=== PATIENT | male | born 1975 | race Caucasian/White ===

== ENCOUNTER 2023-09-23 09:43 | Emergency (ER) | payer SELFPAY ==
[2023-09-23 09:45] VITALS: BP 126/78
--- NOTE | 2023-09-23 09:55 | ED.GENMED ---
History of Present Illness
<Terrie Servin PA-C - Last Filed: 09/23/23 12:11>
General
Chief Complaint: Skin Surface Trauma
Source: patient
Exam Limitations: none
Time Seen by Provider: 09/23/23 09:54
Nursing documentation reviewed up to this point in time: agreed with
Travel History
Have you had any contact with someone who has COVID-19?: No
Do you have any symptoms of coronavirus? Fever > 100 degrees, chills, cough, shortness of breath, sore throat, loss of taste or smell, muscle aches, or headache?: No
History of Present Illness
History of Present Illness:
This is a 48 y/o male with no pertinent past medical history who is presenting to the emergency department today with concerns of a laceration to his right posterior thigh. 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
he was taking tile down. Patient states that he was cut through his pants. Patient states that he is his plan for program blood and so he decided to report to the emergency department. Patient denies any falls, patient denies any injuries,
patient denies head trauma, any neck pain. Patient patient denies any trouble walking. Patient takes no blood thinners, has no chronic medical conditions. Patient states his last tetanus was 7 years ago, we will update today considering tetanus
prone wound.
Review of Systems
<Terrie Servin PA-C - Last Filed: 09/23/23 12:11>
Review of Systems
All Other Systems: ROS reviewed and negative except as documented in HPI and ROS
Phy Exam
<Terrie Servin PA-C - Last Filed: 09/23/23 12:11>
Physical Exam
Physical Exam:
General: Patient is well appearing and in no acute distress; non-toxic
Skin: Warm and dry, 2 cm laceration to the right posterior thigh, actively bleeding.
Head: Normocephalic, atraumatic
Eyes: Sclera non-icteric. EOMs intact. PERRLA.
Cardiac: Regular rate
Peripheral Vascular: No lower extremity swelling or edema. Brisk capillary refill.
Pulm: Normal respiratory effort
Musculoskeletal: No bony tenderness to palpation in the b/l lower extremities.
Neuro: CN II-XII intact, no focal neurologic deficits.
Psychiatric: Appropriate mood and affect.
Course
<Terrie Servin PA-C - Last Filed: 09/23/23 12:11>
Orders/Labs/Results
Orders:
Orders
09/23/23 10:33
Tetanus/Diphth/Acelpertussis [Adacel] 0.5 ml IM .ONCE ONE
Vital Signs
Initial and Last Documented VS:
Initial Vital Signs
Temp Pulse Resp BP Pulse Ox
98.7 F 81 16 126/78 99
09/23/23 09:45 09/23/23 09:45 09/23/23 09:45 09/23/23 09:45 09/23/23 09:45
Last Documented Vital Signs
Temp Pulse Resp BP Pulse Ox
98.7 F 81 16 126/78 99
09/23/23 09:45 09/23/23 09:45 09/23/23 09:45 09/23/23 09:45 09/23/23 09:45
<Edgar Goodwin DO - Last Filed: 09/23/23 11:05>
Orders/Labs/Results
Orders:
Orders
09/23/23 10:33
Tetanus/Diphth/Acelpertussis [Adacel] 0.5 ml IM .ONCE ONE
Vital Signs
Initial and Last Documented VS:
Initial Vital Signs
Temp Pulse Resp BP Pulse Ox
98.7 F 81 16 126/78 99
09/23/23 09:45 09/23/23 09:45 09/23/23 09:45 09/23/23 09:45 09/23/23 09:45
Last Documented Vital Signs
Temp Pulse Resp BP Pulse Ox
98.7 F 81 16 126/78 99
09/23/23 09:45 09/23/23 09:45 09/23/23 09:45 09/23/23 09:45 09/23/23 09:45
Procedures
<Terrie Servin PA-C - Last Filed: 09/23/23 12:11>
Laceration Closure
Right Posterior Thigh:
Status of Wound: clean
Size of Wound in cm: 2
Description of Wound Edges: sharp
Preparation: cleaned with saline and cleaned with Betadine
Anesthesia: 1% Lidocaine with epi
Revision/Debridement: routine- no revision
Wound exploration: explored to base- no FB
Type of Closure: single layer closure
Skin Closure Material: 4-0 prolene
Number of sutures: 2
<PATI Ruiz Last Filed: 09/23/23 12:11>
MDM/Problems Addressed
Differential Diagnosis Includes:
laceration closure--considering wound depth and persistent bleeding, sutures indicated
MDM/Problems Addressed:
laceration
Chronic conditions affecting care:
n/a
Acute Exacerbation and/or Progression of Chronic Illness:
n/a
<PATI Ruiz Last Filed: 09/23/23 12:11>
*Pulse Oximetry
Patient hypoxic: no
*Critical Care Note
Total Time (30-74mins, 75-104mins- exclusive of procedures): Not Applicable
Data Reviewed
Review of Other/Old Records Reveals: Records (No previous ER visits in [facility] to review) and Discharge Summary (No discharge summary to review )
Source: patient and records
<PATI Ruiz Last Filed: 09/23/23 12:11>
Patient Management
Escalation/DeEscalation of care consider admission/obs:
48-year-old male presenting today with a laceration following cutting his thigh with tile. It is actively bleeding, patient denies any other injuries. Patient does not take any blood thinners. Wound closed with sutures. Patient tolerated
procedure well. We discussed wound care precautions and return precautions. Patient has tetanus updated today. Patient stable for discharge.
ED Attending Note
<Terrie Servin PA-C - Last Filed: 09/23/23 12:11>
-
Portions of this chart may have been created with voice recognition software.� Occasional wrong word or��sound alike� substitutions may have occurred due to the inherent limitations of voice recognition software.
<Edgar Goodwin DO - Last Filed: 09/23/23 11:05>
ED Attending Note
Patient seen and examined by attending physician: Yes
I performed a history and physical exam of patient and discussed management with resident, I reviewed resident's note and agree with documented findings and plan of care.: Yes
ED Attending Note:
I have reviewed and agree with history and treatment pland by Terrie Servin. My exam revealed 48 yo male with 2 cm laceration right posterior thigh. Sutured, hemostasis achieved. Tetanus given. Stable for discharge, follow-up with primary care
in 7 to 10 days for suture removal.
Discharge Plan
Departure
Patient Disposition: Home (Routine Discharge)
Date of Disposition: 09/23/23
Time of Disposition: 10:56
Patient with high blood pressure during this ER visit?: Yes
Condition: Good
Discharge Problem:
Laceration of thigh, right
Instructions: Wound Care (DC), Laceration Repair With Stitches (DC)
Referrals:
Sandrine Kirkpatrick NP [Family Provider] -
Activity Restrictions/Additional Instructions:
Please keep the wound dry for 24 hours. After 24 hours, you can clean the wound with mild soap and water. Please keep the wound dressed while at work.
Please return to the emergency department should you experience fevers or chills, purulent drainage from the wound, redness surrounding the wound, extensive pain. These are signs of infection.
Please report to urgent care, the ER, or your primary care provider to have your stitches removed in 7 days.
Interventions
Interventions:
*Risk Screen - Suicide Last Done: 09/23/23 09:45
*General Assessment Last Done: 09/23/23 11:07
*Neglect/Abuse Screening Last Done: 09/23/23 09:45
*ED COVID-19 Vaccine History Last Done: 09/23/23 09:45
*Nursing Disposition Last Done: 09/23/23 11:07
ED-Skin Assessment Last Done: 09/23/23 10:14
Discharge Date and Time
Discharge Date/Time: 09/23/23 11:07
Print Language: POLISH
[2023-09-23] MEDS: ADACEL 0.5 ML IM (10:59)
== END 2023-09-23 11:07 | disposition home or self-care (01) ==
LOC: EMR 09:43
PROVIDERS: EMERGENCY PHYSICIAN Emergency Medicine; FAMILY PHYSICIAN Nurse Practitioner Family
DX: S71.111A Laceration without foreign body, right thigh, initial encounter (principal); X58.XXXA Exposure to other specified factors, initial encounter
CPT/HCPCS: 99282; 12001; 90471; 90715